=== PATIENT | female | born 1965 | race Caucasian/White ===

== ENCOUNTER 2017-03-28 22:17 | Emergency (ER) | payer MEDICAID, SELFPAY ==
[~2017-03-28] VITALS: Ht 165.1 cm; Wt 68.0 kg
[~2017-03-28 22:17] MED LIST: ACET-66 PO
[2017-03-29] MEDS ORDERED: HYDROCODONE/ACETAMINOPHEN 5-325 MG TABLET PO ONE (02:45)
[2017-03-29 02:58] VITALS: BP 142/88
== END 2017-03-29 03:02 | disposition home or self-care (01) ==
LOC: EMS 22:20
DX: S00.93XA Contusion of unspecified part of head, initial encounter (principal); F17.210 Nicotine dependence, cigarettes, uncomplicated; Z88.0 Allergy status to penicillin; Y08.89XA Assault by other specified means, initial encounter; Y93.89 Activity, other specified; Y92.89 Other specified places as the place of occurrence of the external cause; Y99.8 Other external cause status
CPT/HCPCS: 70450; 71020; 99284